=== PATIENT | female | born 1960 | race Caucasian/White ===

== ENCOUNTER 2016-11-28 11:16 | Emergency (ER) | payer MEDICARE, OTHER ==
[~2016-11-28] VITALS: Ht 149.9 cm; Wt 72.7 kg
[~2016-11-28 11:16] MED LIST: CEPHALEXIN500 M1 PO; GABAPENTIN800 MG PO; HUMALOG100 UNIT/2 SUB-Q; HUMULIN R100 UNIT/1 INJ; HYDROCHLOROTHIA25 MG PO; INSULIN SYRING1 EA16 MISC; LANTUS100 UNITS/ SUB-Q; LOSARTAN POTASS25 MG PO; LOSARTAN-HCTZ1 EAC1 PO; LYRICA100 MG PO; LYRICA25 MG PO; MACROBID 100 M100 MG PO; MAG-OXIDE400 MG PO; METFORMIN HCL500 MG PO; NICOTINE PATCH1 EACH TD; NOVOLOG100 UNITS/ IV; OMEPRAZOLE20 MG PO; OXYCODONE HCL5 MG PO; OXYCODONE-ACET1 EAC1 PO; POTASSIUM CHLO20 ME2 PO; PRILOSEC20 MG PO; VISTARIL50 MG PO
[2016-11-28] MEDS ORDERED: DIFLUCAN150 MG PO (11:38)
[2016-11-28] MEDS ORDERED: AMLODIPINE BES2.5 MG PO (11:38)
== END 2016-11-28 11:50 | disposition home or self-care (01) ==
LOC: ED 11:16
DX: I10 Essential (primary) hypertension (principal); N39.0 Urinary tract infection, site not specified; E11.9 Type 2 diabetes mellitus without complications; K21.9 Gastro-esophageal reflux disease without esophagitis; F17.200 Nicotine dependence, unspecified, uncomplicated; Z90.711 Acquired absence of uterus with remaining cervical stump; Z88.6 Allergy status to analgesic agent; Z79.899 Other long term (current) drug therapy; Z79.4 Long term (current) use of insulin
CPT/HCPCS: 99283

== ENCOUNTER 2017-09-11 22:11 | Emergency (ER) | payer OTHER, MEDICARE ==
[~2017-09-11] VITALS: Ht 149.9 cm; Wt 72.7 kg
[~2017-09-11 22:11] MED LIST changes: +AMLODIPINE BES2.5 MG PO; +DIFLUCAN150 MG PO
[2017-09-11] MEDS ORDERED: GLUCOPHAGE500 MG PO (22:22)
[2017-09-11] MEDS ORDERED: PROTONIX20 MG PO (22:23)
[2017-09-11] MEDS ORDERED: CIPRO500 MG PO (22:24)
== END 2017-09-11 22:54 | disposition home or self-care (01) ==
LOC: ED 22:11
DX: S01.01XA Laceration without foreign body of scalp, initial encounter (principal); E11.9 Type 2 diabetes mellitus without complications; K21.9 Gastro-esophageal reflux disease without esophagitis; F17.200 Nicotine dependence, unspecified, uncomplicated; Z88.6 Allergy status to analgesic agent; Z79.899 Other long term (current) drug therapy; Z79.84 Long term (current) use of oral hypoglycemic drugs; W01.0XXA Fall on same level from slipping, tripping and stumbling without subsequent striking against object, initial encounter
CPT/HCPCS: 99282